=== PATIENT | female | born 1960 | race Caucasian/White ===

== ENCOUNTER 2019-10-30 17:30 | Emergency (ER) | payer MEDICAID ==
[~2019-10-30] VITALS: Ht 157.5 cm; Wt 68.0 kg
[2019-10-30 17:36] VITALS: BP_SYST 171
[2019-10-30] MEDS ORDERED: HYDROcodone/ACETAMIN 5-325 MG TAB (NORCO/ VICODIN) PO ONE (18:45)
[2019-10-30] MEDS ORDERED: KETOROLAC TROMETHAMINE 60 MG/2 ML VIAL IM ONE (23:30)
[2019-10-31 01:41] VITALS: BP_SYST 157
== END 2019-10-31 01:40 | disposition home or self-care (01) ==
LOC: SED 17:30
DX: S13.9XXA Sprain of joints and ligaments of unspecified parts of neck, initial encounter (principal); R07.89 Other chest pain; V49.49XA Driver injured in collision with other motor vehicles in traffic accident, initial encounter; Y93.89 Activity, other specified; Y92.413 State road as the place of occurrence of the external cause; Y99.8 Other external cause status
CPT/HCPCS: 70450; 71045; 72125; 72170; 73060; 73564; 96372; 99285; J1885

== ENCOUNTER 2021-12-12 21:15 | Emergency (ER) | payer MEDICAID ==
[~2021-12-12] VITALS: Ht 157.5 cm; Wt 63.5 kg
[2021-12-12 21:51] VITALS: BP_SYST 154
--- NOTE | 2021-12-12 21:55 | NUR ---
Pt from home with c/o bug bite to right lower back and right hip. Pt stating that she went to [place] 1 week ago. VSS.
[2021-12-12] MEDS ORDERED: SULF1TAB48 PO (22:55)
[2021-12-12] MEDS ORDERED: CEPH-548 PO (22:55)
[2021-12-12] MEDS ORDERED: IBUP-1970 PO (22:55)
[2021-12-12 23:30] VITALS: BP_SYST 154
--- NOTE | 2021-12-12 23:30 | NUR ---
Patient given written and verbal discharge instructions and verbalizes understanding. ER Dr. Queen discussed with patient the results and treatment provided. Patient in stable condition. ID arm band removed. Rx of cephalexin, motrin, and bactrim given. Patient educated on pain management and to follow up with PMD. Pain Scale 0. Opportunity for questions provided and answered. Medication side effect fact sheet provided.
== END 2021-12-12 23:30 | disposition home or self-care (01) ==
LOC: SED 21:15
DX: L03.311 Cellulitis of abdominal wall (principal); L03.312 Cellulitis of back [any part except buttock and flank]; Z79.899 Other long term (current) drug therapy
CPT/HCPCS: 99283

== ENCOUNTER 2022-03-22 23:30 | Emergency (ER) | payer MEDICAID ==
[~2022-03-22] VITALS: Ht 154.9 cm; Wt 63.5 kg
[~2022-03-22 23:30] MED LIST: CEPH-548 PO; IBUP-1970 PO; SULF1TAB48 PO
[2022-03-22 23:46] VITALS: BP_SYST 162
--- NOTE | 2022-03-22 23:46 | NUR ---
Patient to ER bed 05 to gown for evaluation. Side rails up. Report given to BRETT CRAWFORD
--- NOTE | 2022-03-22 23:51 | NUR ---
ER Dr. Ortega at bedside examining patient.
[2022-03-23] MEDS ORDERED: KETOROLAC TROMETHAMINE 30 MG VIAL IVP ONE
[2022-03-23] MEDS ORDERED: ONDANSETRON HCL 4 MG/2 ML VIAL IVP ONE
[2022-03-23] MEDS ORDERED: NACL 0.9% 1,000 ML IV ONE
--- NOTE | 2022-03-23 00:15 | NUR ---
# 20 gauge angiocath placed to R AC. Use of asceptic technique. Opsite placed over site. Blood return noted. Flushed with 10 cc of normal saline. No evidence of infiltration noted. Patient tolerated well.
[2022-03-23 00:32] LABS: BASOPHILS # (AUTO) 0.1 K/uL (0.0-0.2); BASOPHILS % (AUTO) 0.5 % (0.0-2.0); EOSINOPHILS % (AUTO) 0.1 % (0.0-4.0); HEMOGLOBIN 15.7 g/dL (12.0-16.0); LYMPHOCYTES # (AUTO) 1.5 K/uL (1.0-5.5); LYMPHOCYTES % (AUTO) 15.2 % (20.5-51.5); MEAN CORPUSCULAR HEMOGLOBIN 29 pg (27-31); MEAN CORPUSCULAR HGB CONC 34 % (32-36); MEAN CORPUSCULAR VOLUME 87 fL (79.0-98.0); MONOCYTES # (AUTO) 1.2 K/uL (0.0-1.0); MONOCYTES % (AUTO) 12.7 % (1.7-9.3); NEUTROPHILS % (AUTO) 71.5 % (40.0-70.0); PLATELET COUNT (AUTO) 204 K/uL (130-430); RED BLOOD CELL COUNT(AUTO) 5.38 MIL/uL (4.2-6.2); WHITE BLOOD COUNT (AUTO) 9.8 K/uL (4.8-10.8)
[2022-03-23 00:41] LABS: CALCIUM 8.9 mg/dL (8.4-11.0); CREATININE 1.23 mg/dL (0.55-1.30)
[2022-03-23 00:46] LABS: ALBUMIN 3.4 g/dL (3.4-4.8); TOTAL BILIRUBIN 0.7 mg/dL (0.0-1.0)
[2022-03-23 01:50] LABS: BILIRUBIN,URINE NEGATIVE (NEGATIVE); BLOOD, URINE NEGATIVE (NEGATIVE); COLOR,URINE YELLOW (YELLOW); GLUCOSE,URINE 3+ (NEGATIVE); KETONES,URINE TRACE (NEGATIVE); NITRITE, URINE POSITIVE (NEGATIVE); PROTEIN URINE TRACE (NEGATIVE); UROBILINOGEN,URINE 0.2 (0.2-1.0)
[2022-03-23 02:15] LABS: CLARITY/URINE SLIGHTLY CLOUDY (CLEAR); LEUKOCYTE ESTERASE ,URINE 1+ (NEGATIVE)
[2022-03-23 02:19] LABS: WBC,URINE 50-80 /HPF (0-3)
[2022-03-23 02:21] LABS: BACTERIA,URINE MODERATE /HPF (None Seen)
[2022-03-23 02:22] LABS: TRICHOMONAS,URINE Rare /HPF (None Seen)
[2022-03-23] MEDS ORDERED: CIPR500T5 PO (02:30)
[2022-03-23] MEDS ORDERED: ACET-2634 PO (02:30)
[2022-03-23] MEDS ORDERED: cefTRIAXone 1 GM in D5W 50 ML IV ONE (02:30)
[2022-03-23] MEDS ORDERED: IBUP-1969 PO (02:30)
[2022-03-23] MEDS ORDERED: cefTRIAXone 1 GM VIAL ONE (02:36)
--- NOTE | 2022-03-23 03:20 | NUR ---
Patient given written and verbal discharge instructions and verbalizes understanding. ER MD DR. Ortega discussed with patient the results and treatment provided. Patient in stable condition. ID arm band removed. IV catheter removed intact and dressing applied, no active bleeding. Rx of given. Patient educated on pain management and to follow up with PMD. Pain Scale 0. Opportunity for questions provided and answered. Medication side effect fact sheet provided.
[2022-03-23 03:28] VITALS: BP_SYST 132
== END 2022-03-23 03:28 | disposition home or self-care (01) ==
LOC: SED 23:30
DX: U07.1 COVID-19 (principal); N39.0 Urinary tract infection, site not specified; R50.9 Fever, unspecified; R73.9 Hyperglycemia, unspecified; I10 Essential (primary) hypertension; Z79.899 Other long term (current) drug therapy
CPT/HCPCS: 99284; 71045; 87426; 80053; 81000; 85025; 87086; 36415; 87804 ×2; 96365; 96375; 96361; J0696; J1885; J2405; J7030

== ENCOUNTER 2022-11-02 12:51 | Emergency (ER) | payer MEDICAID ==
[~2022-11-02] VITALS: Ht 157.5 cm; Wt 68.0 kg
[~2022-11-02 12:51] MED LIST changes: +ACET-2634 PO; +CIPR500T5 PO; +IBUP-1969 PO
[2022-11-02 12:57] VITALS: BP_SYST 149; PULSE 85; RESP 16; TEMP 97.5; O2SAT 99
[2022-11-02] MEDS ORDERED: CEPH-548 PO (13:24)
[2022-11-02 13:53] LABS: BILIRUBIN,URINE NEGATIVE (NEGATIVE); BLOOD, URINE NEGATIVE (NEGATIVE); CLARITY/URINE Clear (CLEAR); COLOR,URINE YELLOW (YELLOW); GLUCOSE,URINE 3+ (NEGATIVE); NITRITE, URINE NEGATIVE (NEGATIVE); PROTEIN URINE NEGATIVE (NEGATIVE); UROBILINOGEN,URINE 0.2 (0.2-1.0)
[2022-11-02 13:55] LABS: KETONES,URINE NEGATIVE (NEGATIVE); LEUKOCYTE ESTERASE ,URINE TRACE (NEGATIVE)
[2022-11-02 14:15] LABS: BACTERIA,URINE None Seen /HPF (None Seen); RBC,URINE 0-3 /HPF (0-3)
[2022-11-02 14:38] VITALS: BP_SYST 180; PULSE 79; RESP 18; TEMP 98; O2SAT 98
== END 2022-11-02 14:39 | disposition home or self-care (01) ==
LOC: SED 12:51
DX: N39.0 Urinary tract infection, site not specified (principal); R30.0 Dysuria; R35.0 Frequency of micturition; R10.30 Lower abdominal pain, unspecified; I10 Essential (primary) hypertension; Z79.899 Other long term (current) drug therapy
CPT/HCPCS: 81000; 81003; 99283

== ENCOUNTER 2023-04-16 01:55 | Emergency (ER) | payer OTHER, MEDICAID ==
[~2023-04-16] VITALS: Ht 157.5 cm; Wt 59.0 kg
[2023-04-16 01:55] VITALS: BP_SYST 168; PULSE 77; RESP 20; TEMP 97.7; O2SAT 100
[2023-04-16] MEDS: KETOROLAC TROMETHAMINE 30 MG VIAL IM ONE (02:27)
[2023-04-16] MEDS: ONDANSETRON 4 MG ODT TAB PO ONE (02:27)
[2023-04-16 02:55] LABS: BILIRUBIN,URINE NEGATIVE (NEGATIVE); BLOOD, URINE NEGATIVE (NEGATIVE); COLOR,URINE YELLOW (YELLOW); GLUCOSE,URINE 3+ (NEGATIVE); KETONES,URINE NEGATIVE (NEGATIVE); NITRITE, URINE POSITIVE (NEGATIVE); PROTEIN URINE NEGATIVE (NEGATIVE); UROBILINOGEN,URINE 0.2 (0.2-1.0)
[2023-04-16 03:11] LABS: BARBITURATE, URINE NEGATIVE (NEG <=200); BENZODIAZEPINE, URINE NEGATIVE (NEG <=150); CANNABINOID, URINE POSITIVE (NEG <=50); COCAINE, URINE NEGATIVE (NEG <=150); METHAMPHETAMINES SCREEN,URINE POSITIVE (NEG <=500); OPIATE, URINE NEGATIVE (NEG <=100); PHENCYCLIDINE SCREEN,URINE NEGATIVE (NEG <=25); UR TRICYCLIC ANTIDEPRESSANTS NEGATIVE (NEG <=300); URINE AMPHETAMINE POSITIVE (NEG <=500); URINE METHADONE NEGATIVE (NEG <=200); URINE OXYCODONE SCREEN NEGATIVE (NEG <=100)
[2023-04-16 03:15] LABS: CLARITY/URINE SLIGHTLY CLOUDY (CLEAR); LEUKOCYTE ESTERASE ,URINE 1+ (NEGATIVE)
[2023-04-16 03:16] LABS: RBC,URINE 0-3 /HPF (0-3); WBC,URINE 20-50 /HPF (0-3)
[2023-04-16 03:17] LABS: BACTERIA,URINE MANY /HPF (None Seen)
[2023-04-16 03:42] VITALS: RESP 20; TEMP 97.7
[2023-04-16 03:45] LABS: BASOPHILS # (AUTO) 0.1 K/uL (0.0-0.2); BASOPHILS % (AUTO) 0.6 % (0.0-2.0); EOSINOPHILS # (AUTO) 0.2 K/uL (0.0-0.4); EOSINOPHILS % (AUTO) 2.5 % (0.0-4.0); HEMATOCRIT 43.1 % (36-48); HEMOGLOBIN 14.5 g/dL (12.0-16.0); LYMPHOCYTES # (AUTO) 3.7 K/uL (1.0-5.5); MEAN CORPUSCULAR HEMOGLOBIN 30 pg (27-31); MEAN CORPUSCULAR HGB CONC 34 % (32-36); MEAN CORPUSCULAR VOLUME 89 fL (79.0-98.0); MONOCYTES # (AUTO) 0.8 K/uL (0.0-1.0); MONOCYTES % (AUTO) 8.6 % (1.7-9.3); NEUTROPHILS # (AUTO) 4.3 K/uL (1.8-7.7); NEUTROPHILS % (AUTO) 47.3 % (40.0-70.0); PLATELET COUNT (AUTO) 231 K/uL (130-430); RED BLOOD CELL COUNT(AUTO) 4.86 MIL/uL (4.2-6.2); RED CELL DISTRIBUTION WIDTH 13.8 % (9.0-15.0); WHITE BLOOD COUNT (AUTO) 9.1 K/uL (4.8-10.8)
[2023-04-16 03:55] LABS: CALCIUM 8.8 mg/dL (8.4-11.0); CREATININE 0.9 mg/dL (0.55-1.30); POTASSIUM 3.7 mmol/L (3.5-5.1)
[2023-04-16 03:59] LABS: ALBUMIN 3.2 g/dL (3.4-4.8); BILIRUBIN,DIRECT 0.1 mg/dL (0.0-0.3); TOTAL BILIRUBIN 0.3 mg/dL (0.0-1.0); TOTAL PROTEIN, SERUM 6.5 g/dL (6.4-8.3)
[2023-04-16] MEDS ORDERED: SULF1TAB48 PO (04:10)
[2023-04-16 04:23] VITALS: BP_SYST 161; PULSE 72; O2SAT 97
[2023-04-18] MEDS ORDERED: NITR-85 PO (12:57)
== END 2023-04-16 04:17 | disposition home or self-care (01) ==
LOC: SED 01:55
DX: N39.0 Urinary tract infection, site not specified (principal); I10 Essential (primary) hypertension; Z90.89 Acquired absence of other organs; Z79.899 Other long term (current) drug therapy
CPT/HCPCS: 99285; 74176; 80307; 80076; 80048; 81001; 83690; 85025; 87086; 36415; 96372; Q0162; J1885; 81000; 81015

== ENCOUNTER 2023-04-20 16:21 | Emergency (ER) | payer OTHER, MEDICAID ==
[~2023-04-20] VITALS: Ht 157.5 cm; Wt 59.0 kg
[~2023-04-20 16:21] MED LIST changes: +NITR-85 PO
[2023-04-20 16:45] VITALS: BP_SYST 148; PULSE 92; RESP 18; TEMP 98.4; O2SAT 98
[2023-04-20 17:28] LABS: BASOPHILS # (AUTO) 0.1 K/uL (0.0-0.2); BASOPHILS % (AUTO) 0.7 % (0.0-2.0); EOSINOPHILS # (AUTO) 0.1 K/uL (0.0-0.4); HEMOGLOBIN 16.8 g/dL (12.0-16.0); LYMPHOCYTES % (AUTO) 31.9 % (20.5-51.5); MEAN CORPUSCULAR HEMOGLOBIN 31 pg (27-31); MEAN CORPUSCULAR HGB CONC 35 % (32-36); MEAN CORPUSCULAR VOLUME 88 fL (79.0-98.0); MONOCYTES # (AUTO) 0.8 K/uL (0.0-1.0); MONOCYTES % (AUTO) 8.8 % (1.7-9.3); NEUTROPHILS # (AUTO) 5.4 K/uL (1.8-7.7); NEUTROPHILS % (AUTO) 57.6 % (40.0-70.0); PLATELET COUNT (AUTO) 257 K/uL (130-430); RED BLOOD CELL COUNT(AUTO) 5.46 MIL/uL (4.2-6.2); RED CELL DISTRIBUTION WIDTH 13.7 % (9.0-15.0); WHITE BLOOD COUNT (AUTO) 9.4 K/uL (4.8-10.8)
[2023-04-20 17:28] LABS: BILIRUBIN,URINE NEGATIVE (NEGATIVE); BLOOD, URINE NEGATIVE (NEGATIVE); CLARITY/URINE CLEAR (CLEAR); COLOR,URINE YELLOW (YELLOW); GLUCOSE,URINE 3+ (NEGATIVE); KETONES,URINE NEGATIVE (NEGATIVE); NITRITE, URINE POSITIVE (NEGATIVE); PROTEIN URINE NEGATIVE (NEGATIVE); UROBILINOGEN,URINE 0.2 (0.2-1.0)
[2023-04-20 17:35] LABS: CALCIUM 8.8 mg/dL (8.4-11.0); CREATININE 1.27 mg/dL (0.55-1.30); POTASSIUM 4.4 mmol/L (3.5-5.1)
[2023-04-20 17:36] LABS: BACTERIA,URINE MODERATE /HPF (None Seen); LEUKOCYTE ESTERASE ,URINE TRACE (NEGATIVE); RBC,URINE NONE SEEN /HPF (0-3)
[2023-04-20 17:37] LABS: MUCUS,URINE None Seen /LPF (None Seen)
[2023-04-20 17:38] LABS: BARBITURATE, URINE NEGATIVE (NEG <=200); BENZODIAZEPINE, URINE POSITIVE (NEG <=150); CANNABINOID, URINE NEGATIVE (NEG <=50); COCAINE, URINE NEGATIVE (NEG <=150); METHAMPHETAMINES SCREEN,URINE POSITIVE (NEG <=500); OPIATE, URINE NEGATIVE (NEG <=100); PHENCYCLIDINE SCREEN,URINE NEGATIVE (NEG <=25); UR TRICYCLIC ANTIDEPRESSANTS NEGATIVE (NEG <=300); URINE AMPHETAMINE POSITIVE (NEG <=500); URINE METHADONE NEGATIVE (NEG <=200); URINE OXYCODONE SCREEN NEGATIVE (NEG <=100)
[2023-04-20] MEDS ORDERED: NITR-85 PO (17:52)
[2023-04-20 18:23] VITALS: BP_SYST 148; PULSE 94; RESP 20; TEMP 98.4; O2SAT 97
== END 2023-04-20 18:24 | disposition home or self-care (01) ==
LOC: SED 16:21
DX: N39.0 Urinary tract infection, site not specified (principal); I10 Essential (primary) hypertension; Z79.899 Other long term (current) drug therapy
CPT/HCPCS: 36415; 80048; 80307; 81000; 81001; 81015; 85025; 87086; 99283